=== PATIENT | female | born 1955 | race Caucasian/White ===

== ENCOUNTER 2025-03-08 11:36 | Emergency (ER) | payer MEDICARE ==
[~2025-03-08 11:36] MED LIST: Iopamidol-370 76% 500 ML MDV (1 ML CHARGE) ONE
[2025-03-08 12:44] LABS: #Basophils 0.07 10x3/uL (0.0-0.2); #Eosinophils 0.38 10x3/uL (0.0-0.7); #Monocytes 0.73 10x3/uL (0.11-0.59); #Neutrophils 5.89 10x3/uL (1.40-6.50); %Basophils 0.7 % (0.0-1.0); %Eosinophils 4.0 % (0.0-10.0); %Lymphocytes 25.7 % (21.0-51.0); %Monocytes 7.6 % (0.0-10.0); %Neutrophils 61.6 % (42.0-75.0); Hematocrit 31.7 % (36.0-47.0); Hemoglobin 10.7 g/dL (12.0-16.0); Mean Corpuscular Hemoglobin 29.5 pg (27.0-31.0); Mean Corpuscular Volume 87.3 fL (78.0-98.0); Platelet Count 458 10x3/uL (130-400); Red Blood Cell (RBC) Count 3.63 mill/uL (4.20-5.40); White Blood Cell (WBC) Count 9.57 10x3/uL (4.8-10.8)
[2025-03-08 13:13] LABS: ALT (SGPT) 11 U/L (Less than 34); AST (SGOT) 22 U/L (11-34); Albumin 3.8 g/dL (3.1-4.5); Alkaline Phosphatase 74 U/L (40-110); Anion Gap 11 mmol/L (10-20); BUN (Urea Nitrogen) 16 mg/dL (9.8-20.1); Bilirubin, Total 0.3 mg/dL (0.3-1.2); Calc. Creatinine Clearance 0 mL/min (70-130); Calcium 9.4 mg/dL (7.8-10.44); Carbon Dioxide 25 mmol/L (23-31); Chloride 100 mmol/L (98-107); Globulin 2.9 g/dL (2.4-3.5); Glucose 101 mg/dL (80-115); Magnesium 2.1 mg/dL (1.6-2.6); Potassium 3.9 mmol/L (3.5-5.1); Sodium 132 mmol/L (136-145)
== END 2025-03-08 15:23 | disposition home or self-care (01) ==
LOC: ERS 11:36
DX: R06.02 Shortness of breath (principal); D64.9 Anemia, unspecified; E87.1 Hypo-osmolality and hyponatremia; I10 Essential (primary) hypertension; E11.9 Type 2 diabetes mellitus without complications
CPT/HCPCS: 71046; 71275; 83735; 83880; 84484; 87428; 93005; 99285; Q9967; 80053; 84443; 85025